=== PATIENT | male | born 1980 | race Caucasian/White ===

== ENCOUNTER 2024-10-30 21:28 | Emergency (ER) | payer SELFPAY ==
[~2024-10-30] VITALS: Ht 172.7 cm; Wt 73.0 kg
[2024-10-30 21:50] VITALS: TEMP 36.6; O2SAT 99
[2024-10-30] MEDS ORDERED: IBUP-2029 MT (22:43)
[2024-10-30 23:03] VITALS: BP 142/84; PULSE 68; RESP 18; O2SAT 100
== END 2024-10-30 23:05 | disposition home or self-care (01) ==
LOC: ER 21:28
DX: S03.03XA Dislocation of jaw, bilateral, initial encounter (principal); X58.XXXA Exposure to other specified factors, initial encounter; Y93.89 Activity, other specified; Y92.89 Other specified places as the place of occurrence of the external cause; Y99.8 Other external cause status
CPT/HCPCS: 21480; 99284